=== PATIENT | female | born 1970 | race Caucasian/White ===

== ENCOUNTER 2022-02-11 10:10 | Observation (INO) ==
--- NOTE | 2022-01-13 10:09 | PAT Medication Instructions ---
Medication Instructions Date of Service January 13, 2022 Home Medications amlodipine 5 mg tablet 5 mg PO QAM clonidine HCl 0.2 mg tablet 0.2 mg PO BID sertraline 100 mg tablet (Zoloft) 100 mg PO HS iron,carbonyl 65 mg-vitamin C 125 mg tablet,delayed release (Vitron-C) 1 tab PO BID metoprolol tartrate 100 mg tablet (Lopressor) 100 mg PO BID oxycodone 30 mg tablet 30 mg PO QID PRN sertraline 50 mg tablet (Zoloft) 50 mg PO HS DO NOT take the morning of surgery iron,carbonyl 65 mg-vitamin C 125 mg tablet,delayed release (Vitron-C) 1 tab PO BID Take morning of surgery With a small sip of water, OTHERWISE NOTHING TO EAT OR DRINK AFTER MIDNIGHT: amlodipine 5 mg tablet 5 mg PO QAM clonidine HCl 0.2 mg tablet 0.2 mg PO BID metoprolol tartrate 100 mg tablet (Lopressor) 100 mg PO BID oxycodone 30 mg tablet 30 mg PO QID PRN(okay to take up to 4 hours prior to surgery if needed) Take evening before surgery clonidine HCl 0.2 mg tablet 0.2 mg PO BID sertraline 100 mg tablet (Zoloft) 100 mg PO HS iron,carbonyl 65 mg-vitamin C 125 mg tablet,delayed release (Vitron-C) 1 tab PO BID metoprolol tartrate 100 mg tablet (Lopressor) 100 mg PO BID oxycodone 30 mg tablet 30 mg PO QID PRN(if needed) sertraline 50 mg tablet (Zoloft) 50 mg PO HS Other Notes If you have any questions please call us at [phone] or [phone] or [phone] or [phone]
--- NOTE | 2022-01-14 14:09 | Anesthesiology Consultation ---
Date of Service January 14, 2022 Assessment & Plan (1) Encounter for pre-operative examination: - COVID screening: Per assessment on 01/14/2022: Travel screen negative, no known COVID-19 positive contacts or current COVID-19 related symptoms in past 2 weeks. Patient vaccinated. Surgeon arranging preop COVID testing, scheduled 02/07/2022. Awaiting results. Chart Review Chart Review: Acceptable Risk for Surgery and Patient seen in Pre Admission Testing Teaching & Discussion Pre-Anesthesia Teaching/Discussion Notes: Instructed NPO after midnight before surgery, except medications with 15 cc of water. Medication instructions provided according to the PAT guidelines. History Surgery Operation Date: 02/11/22 10:40 Proposed Procedures p Right Total Knee Arthroplasty - Tamir Falcon MD Height/Weight Height: 5 ft 3 in Weight: 116.8 kg Allergies Allergy/AdvReac Type Severity Reaction Status Date / Time No Known Allergies Allergy Verified 01/13/22 07:57 Medications Home Medications Medication Instructions Recorded Confirmed Last Taken amlodipine 5 mg tablet 5 mg PO QAM 12/30/21 01/13/22 Unknown clonidine HCl 0.2 mg tablet 0.2 mg PO BID 12/30/21 01/13/22 Unknown sertraline 100 mg tablet (Zoloft) 100 mg PO HS 12/30/21 01/13/22 Unknown iron,carbonyl 65 mg-vitamin C 125 1 tab PO BID 01/13/22 01/13/22 Unknown mg tablet,delayed release (Vitron-C) metoprolol tartrate 100 mg tablet 100 mg PO BID 01/13/22 01/13/22 Unknown (Lopressor) oxycodone 30 mg tablet 30 mg PO QID PRN 01/13/22 01/13/22 Unknown sertraline 50 mg tablet (Zoloft) 50 mg PO HS 01/13/22 01/13/22 Unknown Past Medical History Medical History (Updated 01/14/22 @ 16:03 by Judie Fitzpatrick PA-C) Anemia s/p blood transfusion 1 yr ago Anxiety and depression Chronic kidney disease Diastolic heart failure grade I diastolic dysfunction, EF 55-59% 05/2021 echo History of COVID-19 07/2021>FEVER *RESOLVED Hypertension controlled, stable per pt Neuropathy Pulmonary hypertension mild, PASP 40-45 mmHg on 05/2021 echo Sleep apnea CPAP-compliant Swelling of lower leg RLE; chronic, denies change or worsening Patient denies h/o stroke, seizures, heart attack, DM, or blood clots. Exercise / Class Metabolic Activity III < 4 Walking/Shop/Light housework (ambulates with cane, denies CP or SOB) Past Family History Family History Other No family history of adverse response to anesthesia Past Surgical History Surgical History (Updated 01/14/22 @ 14:12 by Judie Fitzpatrick PA-C) H/O gastric bypass 10 YEARS AGO H/O sinus surgery H/O total hysterectomy History of arthroscopy RT KNEE History of section X 2 History of cholecystectomy History of colonoscopy History of esophagogastroduodenoscopy (EGD) History of tonsillectomy [place] teeth removed Past Anesthesia History No Hx of Anesthesia Complications and No Family Hx of Anesthesia Complications History of PONV No Hx of Motion Sickness and History of PONV (denies needing scop patch) Social History Smoking Status: Former smoker tobacco type: cigarettes Do You Dip or Chew Tobacco: No Smoking End Date: 30+ YEARS AGO Hx Alcohol Use: No substance use type: does not use Review of Systems Patient denies chest pain, shortness of breath, dyspnea on exertion, reflux, fever, chills, cough, wheezing, or palpitations. Physical Exam Vital Signs Vitals BP 134/86 P 55 TEMP 98.8 SP02 98% on RA RESP 17 Physical Full cervical extension range of motion without pain TMD 3.5 finger breaths Mallampati Score 3 Dentition: intact, one crown-not in front; denies missing, chipped or loose teeth, implants or bridges Lungs: normal respiratory effort. Clear throughout to auscultation, no adventitious breath sounds Cardiac: regular rate and rhythm, no murmurs noted Carotid arteries: negative bruit bilat Lab Results Anesthesia Preop Results Results Anesthesia Widget: WBC 5.13 K/uL (4.8-10.8) 01/14/22 Hgb 11.2 g/dL (12.0-16.0) L 01/14/22 Hct 34.8 % (37-47) L 01/14/22 Plt 166 K/uL (130-400) 01/14/22 Na 138 mmol/L (136-145) 01/14/22 K 4.8 mmol/L (3.5-5.1) 01/14/22 Cl 99 mmol/L (98-107) 01/14/22 CO2 34 mmol/L (21-32) H 01/14/22 BUN 13 mg/dl (6-23) 01/14/22 Creat 0.64 mg/dl (0.6-1.2) 01/14/22 Glucose Level 86 mg/dl (70-99(Fasting)) 01/14/22 PT 9.8 Seconds (9.0-12.0) 01/14/22 PTT 25.3 Seconds (21.0-31.0) 01/14/22 INR 0.9 (0.9-1.1) 01/14/22 Blood Type A Positive 01/14/22 Antibody Screen NEGATIVE 01/14/22 Testing Electrocardiogram Date: 11/09/21 NSR, rate 65 bpm Chest X-Ray Date: 11/21/21 Mild scattered linear atelectasis Echocardiogram Date: 06/12/21 EF 55-59% Mild pulmonary hypertension, PASP 40-45 mmHg Septal motion is abnormal Left atrium is severely enlarged Mild cLVH Grade I diastolic dysfunction
--- NOTE | 2022-02-07 19:06 | History and Physical Report ---
DATE OF ADMISSION: 02/11/2022. CHIEF COMPLAINT: Right knee pain and discomfort. HISTORY OF PRESENT ILLNESS: The patient is a 51-year-old female from [place] who presents for christie gical treatment of her right knee. She has a long history of right knee pain and discomfort, and radha cribes it has gotten worse over time. She did have her right knee scope by Dr. Cline in [facility] in 2013, which really did not help much at all. She has progressive increased pain and disc omfort and having trouble getting around. She has global pain. Injections do not help it anymore. She developed increased deformity and bowing of her knee and it gives out when she walks. She has a limited walking tolerance. 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 She would like to have her knee fixed. Of note, the patient has been taking chronic narcotics for this. We strongly encouraged her to get o ff this. The patient did have a gastric bypass surgery at [facility] 10 years ago. She lost 100 pounds, but ga ined most of it back. She did lose about 60 pounds over the past 8 months. PAST MEDICAL HISTORY: 1. Depression. 2. Hypertension. 3. Morbid obesity, status post gastric bypass surgery. PAST SURGICAL HISTORY: Include: 1. Right knee scope done in 2013. 2. x2. 3. Tonsillectomy. 4. Hysterectomy. 5. Gastric bypass surgery. ALLERGIES: None. CURRENT MEDICATIONS: 1. Lopressor. 2. Clonidine. 3. Amlodipine. 4. Vitamin D. 5. Vitamin C. 6. Zoloft. 7. Oxycodone 30 mg 3 times a day. SOCIAL HISTORY: Significant for a 51-year-old female. 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 Does not work for about 8 years. She is . FAMILY HISTORY: Significant for blood clots and heart disease. REVIEW OF SYSTEMS: Significant for obesity. No chest pain or shortness of breath. No history of DV T or PE. She is on chronic oxycodone for multiple issues. PHYSICAL EXAMINATION: GENERAL: Shows a pleasant middle-aged female. Looks to be in reasonably good health. HEENT: Benign. NECK: Supple. No lymphadenopathy. LUNGS: Clear to auscultation. HEART: Regular rate and rhythm. ABDOMEN: Soft, nontender, nondistended. EXTREMITIES: Grossly neurovascularly intact except as follows. Examination of the right knee reveals the patient walks with an antalgic gait. She has varus alignme nt to her knee with a significant varus thrust with weightbearing. Moderate soft tissue envelope. S mall knee effusion. Range of motion about 5-10 degrees short of full extension, about 115 degrees of flexion. No instability. No pain with hip motion. X-RAYS: X-rays of the right knee were reviewed. It shows advanced right knee tricompartment DJD. S he has a severe varus deformity with a tibial femoral subluxation and bone destruction in medial tibi al plateau. She has complete loss of joint space. She has osteophytes in all 3 compartments. ASSESSMENT: A 51-year-old female with morbid obesity, status post gastric bypass surgery and history of knee arthroscopy in the past with advanced right knee tricompartment degenerative joint disease. She has failed conservative treatment. She is also on chronic narcotics, which are an issue. PLAN: We talked about treatment. She is strongly desiring a knee replacement as she cannot hardly g et around and has not been able to work due to her pain. She has failed all conservative measures. Based on her size and deformity, she is going to need a tibial stem. We talked about her oxycodone u se and I talked to her about tapering this down over time and she best get off it. We talked about w aiting so she can get off it versus doing the surgery sooner, and she feels like she needs to do this sooner as she cannot walk any significant degree. We talked about converting it to different meds a s well and we are going to try and taper off the oxycodone and use tramadol. She vows that she is go ing to gradually work her way off this medicine after surgery. We will likely get a pain consult to help manage her postoperative pain with plans on tapering her off. The risks and benefits of right t otal knee replacement were explained to the patient include but not limited to DVT, PE, , infect ion, neurological injury, vascular injury, bleeding problem, pain, limited range of motion, stiffness , failure to relieve symptoms, need for revision surgery. She is fully aware at her young age, she m ay need this revised in the future. She will bring her CPAP machine to the hospital. She is going t o be discharged with home health. Job ID: [id number]
[~2022-02-11 10:10] MED LIST: ACETAMINOPHEN 500 MG TAB PO SCH; BUPIVACAINE 0.25% 30 ML VIAL ONE; BUPIVACAINE 0.5 % 5 MG/1 ML PF 10ML VIAL ONE; BUPIVACAINE LIPOSOME/PF 266 MG, BUPIVACAINE/EPINEPHRINE 50 ML, SODIUM CHLORIDE 0.9% 30 ... INFIL SCH; CeleBREX 200 MG CAP PO SCH; DEXAMETHASONE SOD INJ 4 MG/ML VIAL ONE; EPINEPHrine INJ 1 MG/ML AMP ONE; FAMOTIDINE 20 MG TAB PO SCH; LR 500ML BOLUS, THEN 15ML/HR IV SCH; LR 60ML/HR IV SCH; METOCLOPRAMIDE HCL 10 MG TABLET PO SCH; Scopolamine 1 MG TDSY TD SCH; TRANEXAMIC ACID 1,000 MG **IV Intra-op IV SCH; ceFAZolin 2000MG 2,000 MG/15 ML SYR IV SCH
--- NOTE | 2022-02-11 11:23 | History & Physical Bridge Note ---
Date of Service February 11, 2022 History & Physical Bridge Note I have examined the patient, reviewed the History & Physical and in the interval since the performance of the History & Physical I have noted the following changes of clinical significance: no changes noted
[2022-02-11] MEDS ORDERED: fentaNYL citrate 100 MCG/2 ML VIAL ONE (12:10)
[2022-02-11] MEDS ORDERED: MIDAZOLAM HCL 1 MG/ML 2ML VIAL ONE ×3 (12:10→13:52)
[2022-02-11] MEDS ORDERED: PROPOFOL IV EMULSION 10 MG/ML 20 ML VIAL IV ONE ×7 (12:14→15:22)
[2022-02-11] MEDS ORDERED: VANCOMYCIN HCL 1000MG/20ML VIAL ONE (13:17)
[2022-02-11] MEDS ORDERED: BUPIVACAINE LIPOSOME 1.3% 266 MG/20 ML VIAL ONE (13:17)
[2022-02-11] MEDS ORDERED: SODIUM CHLORIDE 0.9% PF 50 ML VIAL ONE (13:17)
[2022-02-11] MEDS ORDERED: BUPIVACAINE/EPINEPHRINE 0.25% 1:200,000 30 ML VIAL ONE (13:17)
[2022-02-11] MEDS ORDERED: KETAMINE 50 MG/5 ML SYRINGE ONE (13:49)
[2022-02-11] MEDS ORDERED: ONDANSETRON INJ 2 MG/ML 2 ML VIAL ONE (13:49)
[2022-02-11] MEDS ORDERED: GLYCOPYRROLATE 0.2 MG/ML VIAL ONE (13:49)
[2022-02-11] MEDS ORDERED: ONDANSETRON INJ 2 MG/ML 2 ML VIAL IV PRN ×2 (14:24→16:48)
[2022-02-11] MEDS ORDERED: ePHEDrine sulfate 50 MG/ML AMP IV PRN (14:24)
[2022-02-11] MEDS ORDERED: fentaNYL citrate 100 MCG/2 ML VIAL IV PRN (14:24)
[2022-02-11] MEDS ORDERED: ATROPINE SULFATE 0.1 MG/ML 10ML SYR IV PRN (14:24)
[2022-02-11] MEDS ORDERED: PROPOFOL IV EMULSION 10 MG/ML 100 ML VIAL IV ONE (14:30)
--- NOTE | 2022-02-11 15:57 | Operative Report ---
PG Post Operative Report Pre & Post Diagnosis Operation Date: 02/11/22 12:30 Pre-Op Diagnosis: Right Knee Advanced Degenerative Joint Disease Post-Op Diagnosis: Right Knee Advanced Degenerative Joint Disease I identified the patient and participated in the time-out.: Yes Procedure Operation Date: 02/11/22 12:30 Actual Procedures p Right Total Knee Arthroplasty(Right) - Tamir Falcon MD Surgeon Tamir Falcon MD Weed Burner Omar Murray PA-C Estimated Blood Loss 100 Findings Consistent with Post-Op Diagnosis Operative findings were advanced right knee tricompartment DJD. She had extensive grade 4 [id number] disease and severe osteophytes and all 3 compartments. Specimens Right knee sent for pathology Anesthesia Type Spinal MAC Complications none Disposition Accompanied Patient To Recovery: No Indications Patient is a 51-year-old female whose had a long history of bilateral knee pain discomfort right side greater than left. She has been through extensive conservative treatment which became less successful over time. She is actually been taking chronic narcotics due to her pain. She did have undergo knee arthroscopy years ago with minimal relief. X-rays show advanced severe tricompartment DJD. She elected proceed with surgical treatment. Patient's been on chronic narcotics. I discussed with her about getting off narcotics before the knee surgery. She was very adamant about trying to get her knee fixed first as that she has been miserable for a several years and did not feel like she scheduled off the pain medicine. She assured me that she would work on this during her recovery. Description of Procedure Operative implants consisted of: 1 Biomet Vanguard size 70 right posterior stabilized femoral component. 2. Biomet Vanguard III 60 size 75 tibial tray with an 80 x 15 mm offset stem with a 5 mm offset and a small cruciate wing. 3. 14 mm posterior stabilized polyethylene insert. 4. 31 x 8 all Paller patella. The patient was taken to the operating room, identified, placed on the operating table supine position protectors were properly padded. IV antibiotics tried by anesthesia team. A spinal anesthetic and abductor canal block and provided holding area. Hernandez catheter was placed in sterile fashion. Right thigh tent was then placed. The right lower extremities then prepped and draped in usual sterile fashion. The right leg was elevated exsanguinated with use of an Esmarch in terms playset 350 mmHg. An anterior approach to the right knee was then performed through longitudinal incision centered over the patella. Sharp dissection was carried through subcutaneous tissue down the extensor mechanism. A medial parapatellar arthrotomy incision was made. Some subperiosteal dissection was carried out medially. The fat pad was dissected from Neath patella tendon. Lateral patellofemoral ligament was released. Patella subluxated laterally knee was flexed. The osteophytes taken out distal femur. The ACL and PCL were released from the distal femur and the tibia subluxated anteriorly. The tibial eminence was then resected with a saw. I then reamed the tibia up to a size 15. The reamer was left in place and the tibia was then cut removing about a millimeter bone from the most deficient aspect medial tibial plateau. We elect to use a stem due to her severe deformity and large size. I then prepared the tibia for a 15mm offset stem with a 75 tray. This was assembled and placed in the tibia. Attention drawn the femur. The distal femur there was a sharp drop with intramedullary canal was suction. A right 5 degree valgus cutting guide was placed. The distal femoral cutting block was pinned in place. Distal femoral cut was made to take an additional 3 mm bone off distal femur. The femur was then sized to a size 70. The AP cutting block was pinned parallel to the epicondylar axis which was 5 degrees of external rotation. The anterior cut, anterior chamfer, posterior cut, posterior chamfer cuts were made. The box cutting guide was placed in just slight lateral box cut was made. The knee was flexed. The remnants of the medial lateral menisci were excised. The osteophytes were taken off the posterior aspect of femur. A trial femoral component was placed. The tibial tray was already in position. I then trialed the knee and the 14 mm insert fit most appropriately. Attention drawn the patella. Nupathe the patella was cleaned of all soft tissues. Patella thickness measured 22 mm in thickness was cut down to 14. Was sized to a size 31 patella. The lug holes were drilled for the 31 patella. The lateral osteophyte was removed. Patella button was placed. Knee was taken through range of motion patella tracked nicely with no thumbs test. Attention drawn to placing permanent components. Nupathe all trial components were removed. Bone plug was placed in the distal femur limit blood loss. A double batch Palacos G cement was mixed. I did add an additional gram of vancomycin due to her obesity and compromised medical status and therefore increased risk of infection. A a Biomet Vanguard size 70 right posterior stabilized femoral component, size 75 tibial tray with a 15 x 80 mm offset stem with a small cruciate wing were then placed followed by a 14 mm posterior stabilized polyethylene insert and a 31 x 8 all Paller patella. The knee was brought out into full extension total cement hardened. Final cement check was then performed. Pericapsular tissues were injected with total 100 cc of combination of 20 cc of Exparel, 30 cc normal saline, 50 cc of quarter percent Marcaine with epinephrine. Patient did receive 1 g tranexamic acid. The tourniquet was then let down for final turn time of 86 minutes. Hemostasis assured use electrocautery. Extensor mechanism closed with combination 1 PDS suture and 1 Vicryl suture in [id number] fashion. Extensor mechanism is intact. The subcutaneous tissues then closed with 2 Dexon suture in buried interrupted fashion skin was closed skin tang. Leg was then cleaned and dried a sterile dressing was Xeroform, 4 x 4's, sterile cast padding, Bruce bandage were applied. Patient then transferred to the recovery room in stable condition. Patient tolerated procedure well and there were no complications. Omar Murray, my physician assistant grocery, was present for the entire procedure. His assistance was essential and required for appropriate patient positioning, prepping and draping, surgical exposure, performing the technical details of the operation, placement the implants, closure of the wound, and placement of the sterile bandage. I attest to the content of the Intraoperative Record and any orders documented therein. Any exceptions are noted below.
--- NOTE | 2022-02-11 16:15 | XRay Report ---
TWO VIEWS RIGHT KNEE CLINICAL HISTORY: Postoperative examination. FINDINGS: AP and crosstable lateral portable views of the right knee are obtained. A right knee arthr oplasty is in near anatomic alignment. There is a long tibial stem. There has been undersurface remod eling of the patella. No acute fracture is seen. There are expected postoperative changes around the knee including skin clips, soft tissue edema, and subcutaneous gas. IMPRESSION: Expected postoperative changes status post right knee arthroplasty. No acute fracture is seen. ACT 112: Negative or not required by law. Electronically signed by: Bacilio Juan M.D. 02/11/2022 4:13 PM
--- NOTE | 2022-02-11 16:24 | Anesthesiology Progress Note ---
Date of Service February 11, 2022 Anesthesia Post Procedure Vital Signs Vital Signs: Temp Pulse Pulse Resp BP Pulse Ox 02/11/22 16:20 36.4 C L 60 22 171/77 H 98 02/11/22 16:10 74 16 116/93 100 02/11/22 16:00 64 22 145/65 H 100 02/11/22 15:52 36.7 C 75 22 135/70 100 02/11/22 10:36 36.9 C 62 20 177/85 H 98 Pain Intensity Right Knee: Pain Intensity: 7 Transfer of Care Handoff Completed per policy Notes Mental Status: alert / awake / arousable Patient Amnestic to Procedure: Yes Nausea / Vomiting: adequately controlled Pain: adequately controlled Airway Patency, RR, SpO2: stable & adequate BP & HR: stable & adequate Hydration State: stable & adequate Neuraxial Anesthesia: was administered and sensory block is resolving Anesthetic Complications: no major complications apparent
[2022-02-11] MEDS ORDERED: NALOXONE HCL 0.4 MG/1 ML VIAL/CARP IV PRN (16:48)
[2022-02-11] MEDS ORDERED: diphenhydrAMINE Capsule 25 MG CAP PO PRN (16:48)
[2022-02-11] MEDS ORDERED: ALUMINUM/MAGNESIUM SUSP 30 ML UDC PO PRN (16:48)
[2022-02-11] MEDS ORDERED: METOCLOPRAMIDE HCL INJ 5 MG/ML 2 ML VIAL IV PRN (16:48)
[2022-02-11] MEDS ORDERED: MAGNESIUM HYDROXIDE SUSP 30 ML UDC PO PRN (16:48)
[2022-02-11] MEDS ORDERED: bisacodyL 10 MG SUPP PR PRN (16:48)
[2022-02-11] MEDS ORDERED: HYDROmorphone INJ 0.5 MG/0.5 ML SYR IV PRN (16:48)
[2022-02-11] MEDS: Scopolamine CHECK PATCH PLACEMENT SCH (17:22)
[2022-02-11] MEDS: KETOROLAC 30 MG/ML VIAL IV SCH (17:22)
[2022-02-11] MEDS: SODIUM CHLORIDE 0.9% 1000ML 1,000 ML IV SCH (17:22)
[2022-02-11] MEDS: HYDROmorphone HCL 2 MG TAB PO PRN ×2 (17:54→21:21)
[2022-02-11] MEDS: ASCORBIC ACID 500 MG TAB PO SCH (18:25)
[2022-02-11] MEDS: TAPENTADOL HCL ER 50 MG TABCR PO SCH (20:13)
[2022-02-11] MEDS: DOCUSATE SODIUM 100 MG CAP PO SCH (20:13)
[2022-02-11] MEDS: METOPROLOL TARTRATE 100 MG TAB PO SCH (20:13)
[2022-02-11] MEDS: cloNIDine HCL 0.1 MG TAB PO SCH (20:14)
[2022-02-11] MEDS: ASPIRIN 81 MG ECTAB PO SCH (20:14)
[2022-02-11] MEDS: traMADol HCL 50 MG TABLET PO PRN (20:19)
[2022-02-11] MEDS ORDERED: NON-FORMULARY MEDICATION (Iron,Carbonyl-Vitamin C [Vitron-C] 65 mg iron- 125 mg Tablet,Del PO SCH (21:00)
[2022-02-11] MEDS ORDERED: SENNA 8.6 MG TAB PO SCH (21:00)
[2022-02-11] MEDS: ACETAMINOPHEN 500 MG TAB PO SCH (21:22)
[2022-02-11] MEDS: ceFAZolin 2000MG 2,000 MG/15 ML SYR IV SCH (21:24)
[2022-02-11] MEDS ORDERED: TRANEXAMIC ACID / 0.7% NACL 1,000 MG/100 ML BAG IV SCH (22:00)
[2022-02-11] MEDS ORDERED: HYDROmorphone INJ 0.5 MG/0.5 ML SYR IV STA (22:03)
[2022-02-11] MEDS ORDERED: CYCLOBENZAPRINE HCL 10 MG TAB PO STA (22:03)
[2022-02-11] MEDS ORDERED: LORazepam 0.5 MG TAB PO PRN (22:26)
[2022-02-11] MEDS: HYDROmorphone INJ 0.5 MG/0.5 ML SYR IV PRN (22:49)
--- NOTE | 2022-02-11 23:57 | History and Physical Report ---
DATE OF ADMISSION: 02/11/2022 CHIEF COMPLAINT: Status post right total knee replacement. HISTORY OF PRESENT ILLNESS: A 51-year-old female with past medical history significant of COPD, obstructive sleep apnea, on CPAP at bedtime, history of diastolic CHF, hypertension, pulmonary artery hypertension, morbid obesity, status post gastric bypass surgery, vitamin D deficiency, history of stage III chronic kidney disease, chronic pain, polyneuropathy, history of syncope and collapse, chronic headaches, iron-deficiency anemia, ESPINOZA, depression, history of serotonin syndrome, status post right total knee arthroplasty. Complains of severe pain in the right knee. She was getting pain medications post op , but she says that they are not helping much. Denies any other complaints. No headache, no blurred visions, no earache, no runny nose, no sore throat, no cough. Afebrile. No chest pain, no shortness of breath. No nausea, no abdominal pain. Resting comfortably, hemodynamically stable. ALLERGIES: No known drug allergies. PAST MEDICAL HISTORY: As mentioned above. PAST SURGICAL HISTORY: , EGDs, exploration of maxillary sinus, gastric band and laparoscopic gastric restrictive surgery, cholecystectomy, tonsillectomy, total abdominal hysterectomy with removal of tubes. MEDICATIONS: Amlodipine 5 mg p.o. a.m., clonidine 0.2 mg p.o. b.i.d., Vitron-C 1 tablet p.o. b.i.d., metoprolol 100 mg p.o. b.i.d., tramadol 50 mg p.o. q.8 hours p.r.n., oxycodone 30 mg p.o. q.i.d. p.r.n. FAMILY HISTORY: Significant for father has atrial fibrillation, COPD, CHF, MD, hypertension; mother has hypertension; brother has hypertension; sister has hypertension; son has WPW; paternal grandmother has Parkinson's; mother has Parkinson's. SOCIAL HISTORY: , former smoker, who quit in 1992, smoked for 4yrs of 1 pack a day. Alcohol occasional. No drug use. REVIEW OF SYSTEMS: As per HPI. Rest of the review of systems negative. PHYSICAL EXAMINATION: GENERAL: The patient is morbidly obese, not in acute distress. VITAL SIGNS: Temperature 37.5, pulse 61, respiratory rate 18, blood pressure 173/82, oxygen 95% on room air. HEENT: Extraocular muscles intact. Atraumatic. NECK: No JVD, no neck masses. CARDIOVASCULAR: S1 and S2 heard. Regular rate and rhythm. No murmur, no gallop. RESPIRATORY SYSTEM: Normal AP diameter. No accessory muscle use. No wheezing, no crackles. ABDOMEN: Soft. Bowel sounds are present, nontender, nondistended. CENTRAL NERVOUS SYSTEM: Alert and oriented. Speech is clear. No facial droop. Obeys simple commands. Moves extremities. EXTREMITIES: Able to wiggle the toes. Status post right total knee arthroplasty. LABORATORIES: Unavailable. ASSESSMENT AND PLAN: 1. Right total knee arthroplasty: Management as per orthopedics.changed Dilaudid 0.5mg to q3hrs prn Further Pain control as per orthopedics. 2. Hypertension: Continue home medications of amlodipine, clonidine, metoprolol. We will monitor the blood pressure. 3. Obstructive sleep apnea: On CPAP at bedtime. 4. Morbid obesity: Needs counseling. 5. History of chronic obstructive pulmonary disease: Currently stable. 6. Deep venous thrombosis prophylaxis and disposition: As per orthopedics. Job ID: [id number] [facility]
[2022-02-12] MEDS: Scopolamine CHECK PATCH PLACEMENT SCH ×2 (00:01→08:59)
[2022-02-12] MEDS: KETOROLAC 30 MG/ML VIAL IV SCH ×3 (00:01→11:39)
[2022-02-12] MEDS: SODIUM CHLORIDE 0.9% 1000ML 1,000 ML IV SCH (00:29)
[2022-02-12] MEDS: HYDROmorphone HCL 2 MG TAB PO PRN (01:27)
[2022-02-12] MEDS: HYDROmorphone INJ 0.5 MG/0.5 ML SYR IV PRN ×3 (02:32→16:49)
[2022-02-12] MEDS: traMADol HCL 50 MG TABLET PO PRN (04:39)
[2022-02-12] MEDS: ACETAMINOPHEN 500 MG TAB PO SCH ×2 (05:27→13:53)
[2022-02-12] MEDS: ceFAZolin 2000MG 2,000 MG/15 ML SYR IV SCH (05:27)
--- NOTE | 2022-02-12 07:27 | Hospitalist Progress Note ---
Date of Service February 12, 2022 Assessment & Plan Admission and Anticipated Discharge Date Admission Date: February 11, 2022 Subjective Patient seen in follow-up of right TKA, underwent surgery yesterday with Dr. Trudy sims Results & Data Results & Data ([facility] [place]) Vital Signs (Past 12 Hours) Vital Signs Temp Pulse Resp BP Pulse Ox 02/12/22 03:00 73 18 157/83 H 100 02/11/22 22:00 37.5 C 69 18 173/82 H 95 Medications Administered Current Inpatient Medications Acetaminophen (Acetaminophen 500 Mg Tab) 1,000 mg PO Q8 [facility] Stop: 03/13/22 21:59 Last Admin: 02/12/22 05:27 Dose: 1,000 mg Documented by: Al Hydrox/Mg Hydrox/Simethicone (Aluminum/Magnesium Susp 30 Ml Udc) 15 ml PO Q4H PRN PRN Reason: Heartburn Stop: 03/13/22 16:47 Amlodipine Besylate (Amlodipine Besylate 5 Mg Tab) 5 mg PO QAM [facility] Stop: 03/14/22 08:59 Ascorbic Acid (Ascorbic Acid 500 Mg Tab) 500 mg PO BIDM [facility] Stop: 03/13/22 16:59 Last Admin: 02/11/22 18:25 Dose: 500 mg Documented by: Aspirin (Aspirin 81 Mg Ectab) 81 mg PO BID [facility] Stop: 03/13/22 20:59 Last Admin: 02/11/22 20:14 Dose: 81 mg Documented by: Bisacodyl (Bisacodyl 10 Mg Supp) 10 mg [place] DAILY PRN PRN Reason: Constipation Stop: 03/13/22 16:47 Clonidine HCl (Clonidine Hcl 0.1 Mg Tab) 0.2 mg PO BID [facility] Stop: 03/13/22 20:59 Last Admin: 02/11/22 20:14 Dose: 0.2 mg Documented by: Diphenhydramine HCl (Diphenhydramine Capsule 25 Mg Cap) 25 mg PO Q8H PRN PRN Reason: Itching Stop: 03/13/22 16:47 Last Admin: 02/11/22 19:44 Dose: 25 mg Documented by: Docusate Sodium (Docusate Sodium 100 Mg Cap) 100 mg PO BID [facility] Stop: 03/13/22 20:59 Last Admin: 02/11/22 20:13 Dose: 100 mg Documented by: Hydromorphone HCl (Hydromorphone Hcl 2 Mg Tab) 2 - 4 mg PO Q4H PRN PRN Reason: Pain Stop: 02/25/22 16:47 Last Admin: 02/12/22 01:27 Dose: 4 mg Documented by: Hydromorphone HCl (Hydromorphone Inj 0.5 Mg/0.5 Ml Syr) 0.5 mg IV Q3H PRN PRN Reason: SEVERE Pain (8,9,10) or Pre PT Stop: 02/25/22 16:47 Last Admin: 02/12/22 05:28 Dose: 0.5 mg Documented by: Dexamethasone 10 mg/ Syringe 2.5 mls @ 1 mls/min IV TODAY@08 [facility] Stop: 02/12/22 08:03 Ketorolac Tromethamine (Ketorolac 30 Mg/Ml Vial) 30 mg IV Q6H [facility] Stop: 02/13/22 12:01 Last Admin: 02/12/22 05:28 Dose: 30 mg Documented by: Lorazepam (Lorazepam 0.5 Mg Tab) 0.5 mg PO HS PRN PRN Reason: Anxiety/Insomnia Stop: 03/13/22 22:25 Last Admin: 02/11/22 22:48 Dose: 0.5 mg Documented by: Magnesium Hydroxide (Magnesium Hydroxide Susp 30 Ml Udc) 30 ml PO Q6H PRN PRN Reason: Constipation Stop: 03/13/22 16:47 Metoclopramide HCl (Metoclopramide Hcl Inj 5 Mg/Ml 2 Ml Vial) 10 mg IV Q6H PRN PRN Reason: Nausea And Vomiting Stop: 03/13/22 16:47 Metoprolol Tartrate (Metoprolol Tartrate 100 Mg Tab) 100 mg PO BID [facility] Stop: 03/13/22 20:59 Last Admin: 02/11/22 20:13 Dose: 100 mg Documented by: Miscellaneous (Scopolamine Check Patch Placement) 1 ea N/A QS [facility] Stop: 02/14/22 07:59 Last Admin: 02/12/22 00:01 Dose: 1 ea Documented by: Miscellaneous (Scopolamine Remove Transderm Patch) 1 ea N/A ONE ONE Stop: 02/14/22 08:01 Multivitamins (Multivitamin Tab) 1 tab PO QAM [facility] Stop: 03/14/22 08:59 Naloxone HCl (Naloxone Hcl 0.4 Mg/1 Ml Vial/Carp) 0.1 mg IV Q5M PRN PRN Reason: Oversedation/Resp Depression Stop: 03/13/22 16:47 Ondansetron HCl (Ondansetron Inj 2 Mg/Ml 2 Ml Vial) 4 mg IV Q6H PRN PRN Reason: Nausea And Vomiting Stop: 03/13/22 16:47 Sennosides (Senna 8.6 Mg Tab) 17.2 mg PO HS [facility] Stop: 03/13/22 20:59 Last Admin: 02/11/22 20:13 Dose: 17.2 mg Documented by: Tapentadol (Tapentadol Hcl Er 50 Mg Tabcr) 50 mg PO Q12 [facility] Stop: 02/25/22 20:59 Last Admin: 02/11/22 20:13 Dose: 50 mg Documented by: Tramadol HCl (Tramadol Hcl 50 Mg Tablet) 100 mg PO Q8H PRN PRN Reason: MILD Pain 1,2,3 Stop: 03/13/22 20:03 Last Admin: 02/12/22 04:39 Dose: 100 mg Documented by:
[2022-02-12] MEDS ORDERED: dexAMETHasone 10 MG in SYRINGE 0 ML IV SCH (08:00)
[2022-02-12] MEDS: TAPENTADOL HCL ER 50 MG TABCR PO SCH (08:28)
[2022-02-12] MEDS: ASPIRIN 81 MG ECTAB PO SCH (08:28)
[2022-02-12] MEDS: ASCORBIC ACID 500 MG TAB PO SCH (08:29)
[2022-02-12] MEDS: cloNIDine HCL 0.1 MG TAB PO SCH (08:29)
[2022-02-12] MEDS: METOPROLOL TARTRATE 100 MG TAB PO SCH (08:29)
[2022-02-12] MEDS: DOCUSATE SODIUM 100 MG CAP PO SCH (08:32)
[2022-02-12 08:38] LABS: Hematocrit (blood only) 27.6 % (37-47); Hemoglobin 9.1 g/dL (12.0-16.0); Mean Corpuscular Hemoglobin 25.2 pg (25-34); Mean Corpuscular Volume 76.5 fL (80-100); Mean Platelet Volume 9.2 fL (7.4-10.4); Platelet Count 169 K/uL (130-400); RDW Coefficient of Variation 15.1 % (11.5-14.5); RDW Standard Deviation 42.6 fL (36.4-46.3); Red Blood Count 3.61 M/uL (4.2-5.4); White Blood Count 7.63 K/uL (4.8-10.8)
--- NOTE | 2022-02-12 08:39 | Pain Management Consultation ---
Date of Consultation February 12, 2022 Assessment & Plan (1) Postoperative pain of right knee: (2) Opioid dependence with current use: (3) Chronic neuropathic pain: 1. Patient with right-sided knee pain poorly controlled with current opiate regimen POD #1 status post TKA with history of chronic opioid dependency of greater than 10 years duration with most recent utilization of Oxy IR 30 mg 4 times daily with reported plan to diminish opioid dependency. Typically expect 20-30% increase in opioid need in the postoperative setting with history of chronic opiate dependency. Will recommend discontinuation of hydromorphone orally and transition to Oxy IR 30 mg every 4 hours as needed for breakthrough pain in the postoperative setting. We discussed at length that this would be short-term utilization only in the postoperative timeframe and that she should discuss diminishing her opioid dependency with her prescribing physician in the outpatient setting-patient indicates that she has already had this discussion and they will implement this plan upon discharge with improved pain control in the postoperative setting. 2. Recommend continue with Nucynta ER 50 mg every 12 hours. We did discuss benefit of Nucynta ER with regards to her chronic peripheral neuropathic pain. 3. [place] IV hydromorphone for severe pain (8-10/10) not treated adequately with Oxy IR or for planned PT activitie Thank you for allowing us to participate in the care of Mrs. Mckeon. History of Present Illness Reason for Consultation: Chronic opioid dependency/chronic right knee pain status post TKA Requesting Physician: Tamir Falcon MD Attending Physician: Tamir Falcon MD History of Present Illness Mrs. Mckeon is a 51-year-old morbidly obese white female who is POD #1 right TKA. Patient reports a history of chronic peripheral neuropathic pain as well as chronic right-sided knee pain with resultant chronic opiate dependency of greater than 10 years duration. She has past medical history significant for JAIRO with CPAP, obesity with history of gastric bypass, chronic kidney disease, depressive disorder, hypertension, pulmonary artery hypertension, history of diastolic CHF as well as a prior history of serotonin syndrome. Patient reports that she and Dr. Falcon had discussed diminishing her opioid dependency in the postoperative timeframe. The patient reports that she discontinued her Oxy IR which she was utilizing 30 mg 4 times daily 1 week prior to procedure and was utilizing tramadol 100 mg 3 times daily only. Patient reports that her pain has been intractable in the right knee since immediately postop. She reports that her current medications of tramadol and hydromorphone are poorly effective at pain control. She indicates her pain is been a 7-8. She reported poor sleep quality and quantity last evening due to the pain and discomfort. The pain is described as a deep throbbing and occasional sharp pain which travels from the front of the knee through the back of the knee. Patient indicates that she has discussed diminished opioid dependency with her prescribing physician and has a plan to eventually discontinue these medications status post her TKA. Patient has no further constitutional complaints this time. Plan of care discussed with Dr. Nagel. Pain Assessment Full Body Front + Back: 1. Right knee pain POD #1 TKA Pain scale - at its best (0-10): 7 Pain scale - at its worst (0-10): 9 Allergies Allergy/AdvReac Type Severity Reaction Status Date / Time No Known Allergies Allergy Verified 02/11/22 10:32 Home Medications Medication Instructions Recorded Confirmed Type amlodipine 5 mg tablet 5 mg PO QAM 12/30/21 02/11/22 History clonidine HCl 0.2 mg tablet 0.2 mg PO BID 12/30/21 02/11/22 History iron,carbonyl 65 mg-vitamin C 125 1 tab PO BID 01/13/22 02/11/22 History mg tablet,delayed release (Vitron-C) metoprolol tartrate 100 mg tablet 100 mg PO BID 01/13/22 02/11/22 History (Lopressor) oxycodone 30 mg tablet 30 mg PO QID PRN 01/13/22 01/13/22 History tramadol 50 mg tablet 100 mg PO Q8H PRN #60 tab 02/04/22 Rx Pain History Pain Intensity Pain scale - at its best (0-10): 7 Pain scale - at its worst (0-10): 9 Patient History Medical History (Updated 02/12/22 @ 08:50 by Ed Esqueda PA-C) Anemia s/p blood transfusion 1 yr ago Anxiety and depression Chronic kidney disease Chronic neuropathic pain Diastolic heart failure grade I diastolic dysfunction, EF 55-59% 05/2021 echo History of COVID-19 07/2021>FEVER *RESOLVED Hypertension controlled, stable per pt Neuropathy Opioid dependence with current use Postoperative pain of right knee Pulmonary hypertension mild, PASP 40-45 mmHg on 05/2021 echo Sleep apnea CPAP-compliant Swelling of lower leg RLE; chronic, denies change or worsening Surgical History H/O gastric bypass 10 YEARS AGO H/O sinus surgery H/O total hysterectomy History of arthroscopy RT KNEE History of section X 2 History of cholecystectomy History of colonoscopy History of esophagogastroduodenoscopy (EGD) History of tonsillectomy [place] teeth removed Family History Other No family history of adverse response to anesthesia Social History Smoking Status: Former smoker Smoking End Date: 30+ YEARS AGO; Second Hand Exposure: Yes ( A CHILD); Do You Dip or Chew Tobacco: No; Hx Alcohol Use: No Preferred Language: Jamaican Customer Retention Representative Required: No Beliefs That Will Affect Care: None Current Living Situation: Family Current Living Situation Comment: WITH AND DAUGHTER Feels Safe at Home: Yes Safety Concerns: Feels Safe At This Time Assistive Devices: Cane, CPAP and Glasses Physical Exam Physical Exam: General: Patient lying quietly in exam room in no acute distress. Patient is rating her current pain a 7/10 of the right knee. Speech and thought process appropriate. Mood and affect appropriate. Cognition intact. Patient obese and physically deconditioned. Head: Normocephalic and atraumatic. ENT: No evidence of nasal or oral mucosal lesions. Mucous membranes are moist. Eyes: Pupils equal round reactive to light. Neck: Supple without adenopathy and full range of motion. Abdomen: Soft and nondistended. No organomegaly. Bowel sounds active. Back/spine: Patient unwilling to log roll for examination. Lower extremities: Large bandage in place in the right knee which was not removed for visual inspection. Ice in place. Left lower extremity with compr ession stocking in place. Sensation intact distally of the bilateral feet with some scattered dysesthesias appreciated. Neurologic: Cranial nerves grossly intact. Ambulatory function not witnessed.
[2022-02-12 08:53] LABS: BUN Creatinine Ratio 27.1 (10-20); Calcium 8.8 mg/dl (8.5-10.1); Creatinine Clr Calc Pharmacy 115.6 ml/min; Est GFR (African American) 114.6 ml/min; Est GFR (Non-African American) 98.9 ml/min; Potassium 3.9 mmol/L (3.5-5.1)
[2022-02-12] MEDS ORDERED: amLODIPine BESYLATE 5 MG TAB PO SCH (09:00)
[2022-02-12] MEDS ORDERED: Nursing to Pharmacy Communication SCH (09:00)
[2022-02-12] MEDS ORDERED: MULTIVITAMIN TAB PO SCH (09:00)
[2022-02-12] MEDS: oxyCODONE HCL IR 30 MG TAB (IMMEDIATE RELEASE) PO PRN ×2 (09:49→13:53)
--- NOTE | 2022-02-12 14:52 | Progress Notes ---
DATE OF SERVICE: 02/12/2022 SUBJECTIVE: A 51-year-old female postoperative day 1 from right knee replacement. She is doing true rkably well from a functional standpoint. Had quite a bit of pain, but now under better control. No chest pain or shortness of breath. OBJECTIVE: VITAL SIGNS: Temperature 36.8. Vital signs are stable. PHYSICAL EXAMINATION: GENERAL: Shows a pleasant 51-year-old female. She is walking in the hallways with a walker quite we ll. EXTREMITIES: Examination of the right leg reveals the dressing to be clean, dry and intact. She can dorsiflex and plantarflex her foot appropriately. She is neurologically intact. LABORATORY DATA: Hemoglobin 9.1. Hematocrit 27.6. Electrolytes are stable. ASSESSMENT: A 51-year-old female postoperative day 1 from a right knee replacement, doing remarkably well from a functional standpoint. She is on chronic narcotics, which is going to make pain managem ent difficult. PLAN: 1. DVT prophylaxis includes thigh-high TEDs, SCDs, and aspirin twice a day. 2. PT, OT, weightbear as tolerated. Right total knee protocol. 3. Pain control, doing okay with current pain regimen. The pain service has been consulted and they made recommendations. We will follow those. We will continue her on Nucynta along with the oxycodo ne. 4. Disposition: Plan to discharge her home with some home health later today. Job ID: [id number]
== END 2022-02-12 17:28 | disposition home health service (06) ==
LOC: 3E 10:10 → ASU 10:10